=== PATIENT | male | born 2000 | race Hispanic/Latino ===

== ENCOUNTER 2021-01-05 13:15 | Emergency (ER) | payer OTHER ==
[~2021-01-05] VITALS: Ht 208.3 cm; Wt 67.8 kg
[2021-01-05 13:16] VITALS: BP 119/68
[2021-01-05] MEDS ORDERED: ACETAMINOPHEN 500 MG TAB PO ONE (13:45)
[2021-01-05] MEDS ORDERED: GABAPENTIN 300 MG CAP PO ONE (14:00)
[2021-01-05] MEDS ORDERED: NEUR100C PO (14:05)
--- OUTSIDE RECORDS SUMMARY | 2021-01-05 14:08 | CCD ---
Author Author [facility] Address Unknown Phone Unavailable Support Name Relationship Address Phone [facility] Next Of Kin [address] [place] [address] Unavailable RAMÍREZ HENSON Next Of Kin [address] [place] [address] Re-disclosure Warning The records that you are about to access may contain information from federally-assisted alcohol or drug abuse programs. If such information is present, then the following federally mandated warning applies: This information has been disclosed to you from records protected by federal confidentiality rules (42 CFR part 2). The federal rules prohibit you from making any further disclosure of this information unless further disclosure is expressly permitted by the written consent of the person to whom it pertains or as otherwise permitted by 42 CFR part 2. A general authorization for the release of medical or other information is NOT sufficient for this purpose. The Federal rules restrict any use of the information to criminally investigate or prosecute any alcohol or drug abuse patient.The records that you are about to access may contain highly sensitive health information, the redisclosure of which is protected by Article 27-F of the [facility] Public Health law. If you continue you may have access to information: Regarding HIV / AIDS; Provided by facilities licensed or operated by the [facility] Office of Mental Health; or Provided by the [facility] Office for People With Developmental Disabilities. If such information is present, then the following [facility] mandated warning applies: This information has been disclosed to you from confidential records which are protected by state law. State law prohibits you from making any further disclosure of this information without the specific written consent of the person to whom it pertains, or as otherwise permitted by law. Any unauthorized further disclosure in violation of state law may result in a fine or senior living sentence or both. A general authorization for the release of medical or other information is NOT sufficient authorization for further disc losure. Immunizations Vaccine Date Status Description Data Source(s) COVID-19 VACCINE Pfizer 07/15/2020 12:00:00 AM EDT completed [facility] Vaccine Series Complete: NOThis Data was Submitted to [facility] Via [employer]. Medications No Information Insurance Providers Payer name Policy type / Coverage type Policy ID Covered green party ID Covered green party's relationship to pfeiffer Policy Pfeiffer Plan Information [facility] [employer] [id number] Problems, Conditions, and Diagnoses No Information Surgeries/Procedures No Information Results No Information Social History No Information
== END 2021-01-05 14:15 | disposition home or self-care (01) ==
LOC: M ED 13:15
DX: M79.676 Pain in unspecified toe(s) (principal); G62.9 Polyneuropathy, unspecified; X31.XXXA Exposure to excessive natural cold, initial encounter; Y92.84 Military training ground as the place of occurrence of the external cause; Y93.9 Activity, unspecified; Y99.1 Military activity; F17.200 Nicotine dependence, unspecified, uncomplicated

== ENCOUNTER 2021-01-07 22:08 | Emergency (ER) | payer OTHER ==
[~2021-01-07] VITALS: Ht 177.8 cm; Wt 66.4 kg
[~2021-01-07 22:08] MED LIST: NEUR100C PO
[2021-01-07 22:09] VITALS: BP 134/87
[2021-01-07] MEDS ORDERED: IBUP1TAB6 PO (22:13)
--- OUTSIDE RECORDS SUMMARY | 2021-01-07 22:14 | CCD ---
Author Author [facility] Address Unknown Phone Unavailable Support Name Relationship Address Phone [facility] Next Of Kin [address] [place] [address] Unavailable RAMÍREZ HENSON Next Of Kin [address] [place] [address] [place] [address] Re-disclosure Warning The records that you are [...] is protected by Article 27-F of the [facility] Public Health law. If you continue you may have access to information: Regarding HIV / AIDS; Provided by facilities licensed or operated by the [facility] Office of Mental Health; or Provided by the [facility] Office for People With Developmental Disabilities. If such information is present, then the following [facility] mandated warning applies: This information has been [...] law may result in a fine or prison sentence or both. A general authorization for the release of medical or other information is NOT sufficient authorization for further disc losure. Immunizations Vaccine Date Status Description Data Source(s) COVID-19 VACCINE Pfizer 07/15/2020 12:00:00 AM EDT completed [facility] Vaccine Series Complete: NOThis Data was Submitted to [facility] Via [facility]. Medications No Information Insurance Providers Payer name Policy type / Coverage type Policy ID Covered republican ID Covered republican's relationship to pfeiffer Policy Pfeiffer Plan Information [facility] [employer] [id number] Problems, Conditions, and Diagnoses No Information Surgeries/Procedures No Information Results No Information Social History No Information
--- OUTSIDE RECORDS SUMMARY | 2021-01-07 23:27 | CCD ---
Author Author [facility] Address Unknown Phone Unavailable Support Name Relationship Address Phone [facility] Next Of Kin [address] [place] [address] Unavailable RAMÍREZ HENSON Next Of Kin [address] [place] [address] Re-disclosure Warning The records that you are [...] is protected by Article 27-F of the [facility] Public Health law. If you continue you may have access to information: Regarding HIV / AIDS; Provided by facilities licensed or operated by the [facility] Office of Mental Health; or Provided by the [facility] Office for People With Developmental Disabilities. If such information is present, then the following [facility] mandated warning applies: This information has been [...] law may result in a fine or detention sentence or both. A general authorization for the release of medical or other information is NOT sufficient authorization for further disc losure. Immunizations Vaccine Date Status Description Data Source(s) COVID-19 VACCINE Pfizer 07/15/2020 12:00:00 AM EDT completed [facility] Vaccine Series Complete: NOThis Data was Submitted to [facility] Via [employer]. Medications No Information Insurance Providers Payer name Policy type / Coverage type Policy ID Covered constitution party ID Covered constitution party's relationship to pfeiffer Policy Pfeiffer Plan Information [facility] [employer] [id number] Problems, Conditions, and Diagnoses No Information Surgeries/Procedures No Information Results No Information Social History No Information
== END 2021-01-07 23:30 | disposition left against medical advice (07) ==
LOC: M ED 22:08
DX: Z53.21 Procedure and treatment not carried out due to patient leaving prior to being seen by health care provider (principal)

== ENCOUNTER 2021-07-11 19:06 | Emergency (ER) | payer OTHER ==
[~2021-07-11] VITALS: Ht 172.7 cm; Wt 69.0 kg
[~2021-07-11 19:06] MED LIST changes: +IBUP1TAB6 PO
[2021-07-12 00:17] VITALS: BP 131/74
== END 2021-07-12 01:00 | disposition left against medical advice (07) ==
LOC: M ED 19:06
DX: Z53.21 Procedure and treatment not carried out due to patient leaving prior to being seen by health care provider (principal)

== ENCOUNTER 2021-07-14 10:38 | Emergency (ER) | payer OTHER ==
[~2021-07-14] VITALS: Ht 172.7 cm; Wt 67.7 kg
[2021-07-14 10:47] VITALS: BP 119/66
[2021-07-14] MEDS ORDERED: ISOVUE-370 76% 100ML VIAL As Ordered ONE (12:04)
[2021-07-14] MEDS ORDERED: valACYclovir HCL 500 MG TAB PO ONE (13:10)
[2021-07-14] MEDS ORDERED: predniSONE 20 MG TAB PO ONE (13:10)
[2021-07-14] MEDS ORDERED: PRED10TA2 PO (13:26)
[2021-07-14] MEDS ORDERED: MINE3.5O12 OD (13:26)
[2021-07-14] MEDS ORDERED: VALA1TAB5 PO (13:26)
== END 2021-07-14 13:59 | disposition home or self-care (01) ==
LOC: M ED 10:38 → EDBD 10:38 → M ED 13:59
DX: G51.0 Bell's palsy (principal); F17.290 Nicotine dependence, other tobacco product, uncomplicated
CPT/HCPCS: 70450; 99284; J7512